=== PATIENT | female | born 1970 | race Caucasian/White ===

== ENCOUNTER → 2017-12-09 | Outpatient (CLI) | payer MEDICARE, MEDICAID ==
[~2017-12-09] MED LIST: CLEOCIN150 MG PO; DEPAKOTE125 MG PO; ECONOPRED PLUS10 M1 OD; HYDROCODONE BIT1 T11 PO; IBUPROFEN600 MG PO; KROGER NIC21 MG/24 H T; METHOTREXATE S2.5 M1 PO; MOTRIN800 MG PO; NEURONTIN800 MG PO; NORCO 325 MG-51 TAB PO; OXYCODONE HCL5 MG PO; VICODIN 500 MG-1 TAB PO; ZOFRAN ODT4 MG SL
[2017-12-09 12:19] LABS: HEMATOCRIT 46.6 % (37.0-47.0); HEMOGLOBIN 15.5 g/dl (12.0-16.0); MEAN CELL VOLUME 94.5 fl (81.0-99.0); MEAN CORPUSCULAR HGB 31.4 pg (27.0-31.0); MEAN CORPUSCULAR HGB CONC 33.3 g/dl (33.0-37.0); MEAN PLATELET VOLUME 10.1 fl (9.6-12.3); RED BLOOD COUNT 4.93 10*6/uL (4.10-5.10); RED CELL DISTRI WIDTH 16.3 % (0-14.5); WHITE BLOOD COUNT 9.6 10*3/uL (4.8-10.8)
[2017-12-09 12:51] LABS: ALBUMIN 3.7 gm/dl (3.1-4.5); BUN 15 mg/dl (7-24); CHLORIDE 106 mmol/L (98-107); CHOLESTEROL 207 mg/dL (<200); CREATININE 0.74 mg/dL (0.55-1.02); LIPASE 174 U/L (73-393); POTASSIUM 4.7 mmol/L (3.5-5.1); SGOT/AST 86 IU/L (3-35); SGPT/ALT 125 U/L (12-78); SODIUM 140 mmol/L (136-145); TOTAL PROTEIN 7.8 gm/dL (6.4-8.2); TRIGLYCERIDES 159 mg/dl (<150); VLDL CHOLESTEROL 32 mg/dL (6-40)
[2017-12-09 12:52] LABS: ALKALINE PHOSPHATASE 104 U/L (45-117); HDL CHOLESTEROL 56 mg/dl (40-60); LDL CHOLESTEROL 119 mg/dL (9-159)
== END ==
LOC: LAB 11:57
PROVIDERS: Family Medicine
DX: E78.00 Pure hypercholesterolemia, unspecified (principal); E74.9 Disorder of carbohydrate metabolism, unspecified; E55.9 Vitamin D deficiency, unspecified; Z79.899 Other long term (current) drug therapy

== ENCOUNTER → 2018-02-12 | Outpatient (CLI) | payer MEDICARE, MEDICAID ==
--- NOTE | ~2018-02-12 | EEG ---
[place], [place] ELECTROENCEPHALOGRAM REPORT NAME: BRITTNI JERNIGAN UNIT #: [id number] ROOM: DOCTOR: DAISHA SPICER MD, JR DOS: 02/12/18 This 47-year-old woman on Vimpat, Neurontin, prednisone and ibuprofen displayed the following underlying rhythms: Fairly well organized, synchronous, 12 Hz, 30 microvolt alpha rhythm in both posterior regions. 18 Hz, 20 microvolt beta rhythms were noted in both anterior and posterior regions. There was symmetrical attenuation of posterior alpha rhythms with eye opening. Five minutes hyperventilation produced no abnormalities. There was fair driving photic stimulation without abnormalities. The patient did not fall asleep during this tracing. Throughout this recording, there were no focal abnormalities or epileptiform activity. IMPRESSION: Normal awake EEG. Clinical correlation was highly advised. DAISHA SPICER MD CM:EEG:ELECTROENCEPHALOGRAM REPORT [id number] T: DAISHA SPICER MD, JR
== END | disposition home or self-care (01) ==
LOC: CP 11:57
DX: G25.3 Myoclonus (principal); K14.8 Other diseases of tongue

== ENCOUNTER → 2018-06-09 | Outpatient (CLI) | payer MEDICARE, MEDICAID ==
[2018-06-09 09:04] LABS: BASO % 0.4 % (0.0-1.0); EOS # 0.3 10*3/uL (0.0-0.4); EOS % 2.9 % (1.0-4.0); HEMATOCRIT 49.5 % (37.0-47.0); HEMOGLOBIN 16.1 g/dl (12.0-16.0); LYMPH # 2.6 10*3/uL (1.3-4.4); LYMPH % 24.1 % (27.0-41.0); MEAN CELL VOLUME 96.5 fl (81.0-99.0); MEAN CORPUSCULAR HGB 31.4 pg (27.0-31.0); MEAN CORPUSCULAR HGB CONC 32.5 g/dl (33.0-37.0); MONO # 0.8 10*3/uL (0.1-1.0); MONO % 7.3 % (3.0-9.0); NEUT # 6.9 10*3/uL (2.3-7.9); NEUT % 64.9 % (47.0-73.0); PLATELET COUNT AUTOMATED 300 10*3/uL (130-400); RED BLOOD COUNT 5.13 10*6/uL (4.10-5.10); RED CELL DISTRI WIDTH 16.2 % (0-14.5); WHITE BLOOD COUNT 10.6 10*3/uL (4.8-10.8)
[2018-06-09 09:23] LABS: ALBUMIN 3.7 gm/dl (3.1-4.5); BUN 15 mg/dl (7-24); CHLORIDE 106 mmol/L (98-107); CREATININE 0.85 mg/dL (0.55-1.02); POTASSIUM 4.4 mmol/L (3.5-5.1); SGOT/AST 12 IU/L (3-35); SGPT/ALT 23 U/L (12-78); SODIUM 139 mmol/L (136-145); TOTAL PROTEIN 7.8 gm/dL (6.4-8.2)
[2018-06-09 09:25] LABS: ALKALINE PHOSPHATASE 102 U/L (45-117)
== END | disposition home or self-care (01) ==
LOC: LAB 08:11
PROVIDERS: Nurse Practitioner Family
DX: H20.13 Chronic iridocyclitis, bilateral (principal); Z79.899 Other long term (current) drug therapy

== ENCOUNTER 2018-10-13 17:18 | Emergency (ER) | payer MEDICARE, MEDICAID ==
[~2018-10-13] VITALS: Ht 162.5 cm; Wt 111.6 kg
[2018-10-13 18:38] LABS: BASO # 0.1 10*3/uL (0.0-0.1); BASO % 0.3 % (0.0-1.0); EOS # 0.3 10*3/uL (0.0-0.4); HEMATOCRIT 45.6 % (37.0-47.0); HEMOGLOBIN 15.3 g/dl (12.0-16.0); LYMPH # 3.1 10*3/uL (1.3-4.4); LYMPH % 20.1 % (27.0-41.0); MEAN CELL VOLUME 94.4 fl (81.0-99.0); MEAN CORPUSCULAR HGB 31.7 pg (27.0-31.0); MEAN CORPUSCULAR HGB CONC 33.6 g/dl (33.0-37.0); MEAN PLATELET VOLUME 10.1 fl (9.6-12.3); MONO # 1.1 10*3/uL (0.1-1.0); NEUT # 10.7 10*3/uL (2.3-7.9); NEUT % 70.3 % (47.0-73.0); PLATELET COUNT AUTOMATED 333 10*3/uL (130-400); RED BLOOD COUNT 4.83 10*6/uL (4.10-5.10); RED CELL DISTRI WIDTH 15.5 % (0-14.5); WHITE BLOOD COUNT 15.3 10*3/uL (4.8-10.8)
[2018-10-13 18:57] LABS: ALBUMIN 3.6 gm/dl (3.1-4.5); ALKALINE PHOSPHATASE 105 U/L (45-117); BUN 15 mg/dl (7-24); CHLORIDE 110 mmol/L (98-107); CREATININE 0.71 mg/dL (0.55-1.02); POTASSIUM 4.2 mmol/L (3.5-5.1); SGOT/AST 16 IU/L (3-35); SGPT/ALT 21 U/L (12-78); SODIUM 139 mmol/L (136-145); TOTAL PROTEIN 7.7 gm/dL (6.4-8.2)
[2018-10-13] MEDS ORDERED: CEPACOL SORE T1 EACH MM (20:16)
[2018-10-13] MEDS ORDERED: LEVAQUIN500 M2 PO (20:16)
== END 2018-10-13 20:26 | disposition home or self-care (01) ==
LOC: ED 17:18
PROVIDERS: Emergency Medicine
DX: J03.90 Acute tonsillitis, unspecified (principal); E78.5 Hyperlipidemia, unspecified; E66.01 Morbid (severe) obesity due to excess calories; F17.200 Nicotine dependence, unspecified, uncomplicated; Z68.41 Body mass index [BMI] 40.0-44.9, adult; Z88.0 Allergy status to penicillin; Z88.6 Allergy status to analgesic agent; Z88.5 Allergy status to narcotic agent; Z79.899 Other long term (current) drug therapy; Z90.49 Acquired absence of other specified parts of digestive tract

== ENCOUNTER → 2018-11-01 | Outpatient (CLI) | payer MEDICARE, MEDICAID ==
[~2018-11-01] MED LIST changes: +ASPIRIN81 M1 PO; +CARVEDILOL3.125 MG PO; +CEPACOL SORE T1 EACH MM; +CLARITIN10 MG PO; +DELTASONE20 M1 PO; +IBU800 M1 PO; +LEVAQUIN500 M2 PO; +LIPITOR40 MG PO; +LOPRESSOR25 MG PO; +METHOTREXATE2.5 M1 PO; +NATURE'S BLEND F1 MG PO; +NORVASC10 MG PO; +VIMPAT100 MG PO; +VIMPAT50 MG PO; +ZITHROMAX250 MG PO
== END | disposition home or self-care (01) ==
LOC: RAD 16:34
DX: J84.9 Interstitial pulmonary disease, unspecified (principal)

== ENCOUNTER 2018-11-15 12:20 | Inpatient (IN) | payer MEDICARE, MEDICAID ==
[~2018-11-15] VITALS: Ht 162.5 cm; Wt 116.2 kg
--- NOTE | ~2018-11-15 | EKG ---
[place], [place] ELECTROCARDIOGRAM REPORT NAME: BRITTNI JERNIGAN UNIT #: [id number] ROOM: 504 DOCTOR: TONE DRAFT REPORT BIRTHDATE: [birth year] [facility] Test Date: 2018-11-16 Test Time: 16:03:53 Pat Name: BRITTNI JERNIGAN Department: Room: 504 2 Gender: F Software Engineering Project Manager: Radha Rincon : 1970 Requested By: WENDIE SCHAFER Order Number: [id number] Reading MD: Wendie Schafer MD Measurements Intervals [place] Rate: 66 P: 36 [place]: 160 QRS: 17 QRSD: 89 T: 83 QT: 412 QTc: 432 Interpretive Statements Sinus rhythm Compared to ECG 11/15/2018 18:29:07 No significant changes Electronically Signed On 11-17-2018 15:46:13 PST by Wendie Schafer MD CM:EKGRPT:ELECTROCARDIOGRAM REPORT [id number] WENDIE SCHAFER MD EPIPHANY DRAFT REPORT WENDIE SCHAFER MD
--- NOTE | ~2018-11-15 | PR ---
[place], [place] PROGRESS NOTE NAME: BRITTNI JERNIGAN UNIT #: [id number] ROOM: 504 DOCTOR: TANNER STEPHENS MD BIRTHDATE: [birth year] DOS: 11/16/2018 SUBJECTIVE: The patient is feeling better and underwent cardiac stress testing this morning, which was abnormal. PHYSICAL EXAMINATION: GENERAL APPEARANCE: The patient is alert and oriented x 3, in no visible distress. Morbid obesity. VITAL SIGNS: Blood pressure 142/88, heart rate of 63 beats per minute, breathing 20 times per minute, afebrile. HEENT AND NECK: Exam within normal limits. CARDIOVASCULAR SYSTEM: Heart rate is regular in rate and rhythm. S1 and S2 normally audible. LUNGS: Clear to auscultation. ABDOMEN: Soft, nontender. No obvious organomegaly. Bowel sounds are present. EXTREMITIES: Without significant cyanosis or edema. IMPRESSION: 1. Coronary artery disease and abnormal cardiac stress test showing moderate-sized reversible ischemic defect involving mid and distal anterior septum with 64% left ventricular ejection fraction. Dr. Benton consulted to take her for a heart catheterization for further evaluation. Cardiac enzymes were all negative. 2. Left-sided and precordial chest pains, resolved. 3. Benign essential hypertension, treated and controlled. 4. POLLEN ALLERGIES, being treated with loratadine and asymptomatic. 5. Nicotine smoke dependence. The patient has been encouraged to stop smoking cigarettes and started on nicotine patch. 6. Moderate protein calorie malnutrition. The patient working with dietary. 7. Morbid obesity with BMI of 44. The patient is working with dietary. TANNER STEPHENS MD CM:PNTRANS [id number] TANNER STEPHENS MD 11/17/18519 interface
--- NOTE | ~2018-11-15 | DS ---
[place], [place] DISCHARGE SUMMARY NAME: BRITTNI JERNIGAN UNIT #: [id number] ROOM: 504 DOCTOR: ANGELO MONSIVAISTANNER Prieto BIRTHDATE: [birth year] DOS: 11/17/2018 DISCHARGE DIAGNOSES: 1. Abnormal cardiac stress test. The patient was sent for heart catheterization with Dr. Benton. 2. Morbid obesity, BMI of 44. 3. Nicotine smoke dependence. 4. History of pancreatitis. 5. Generalized seizure disorder. 6. Mixed hyperlipidemia. 7. Vitamin D deficiency. 8. Moderate protein-calorie malnutrition. 9. POLLEN allergies. 10. Benign essential hypertension. The patient was admitted when she presented with left-sided and precordial chest pains and cardiac enzymes were negative. I took the patient for a cardiac stress test, which turned out to be abnormal. Moderate sized reversible ischemic defect involving the mid and distal anterior septum with 64% left ventricular ejection fraction. The patient was taken for heart catheterization by Dr. Benton to [facility] for further evaluation. The patient was kept on a cardiac rehabilitation program director and kept symptom-free at [facility]. 11. Benign essential hypertension. Blood pressures are monitored and treated. 12. POLLEN allergies treated and asymptomatic with loratadine. 13. Nicotine smoke dependence. The patient was encouraged to stop smoking cigarettes and kept on a nicotine patch. Bad effect of cigarette smoke on her health was explained to her. 14. Moderate protein-calorie malnutrition. The patient worked with Dietary. 15. Morbid obesity with a BMI of 44. The patient worked with Dietary. DISCHARGE MANAGEMENT: She was on methotrexate 15 mg every Thursday, Lipitor 40 mg a day, metoprolol 25 mg b.i.d., aspirin 81 mg a day, loratadine 10 mg a day, amlodipine 10 mg a day, lacosamide 100 mg b.i.d., prednisolone eyedrops, nicotine patch 21 mg a day, gabapentin 800 mg q.i.d., ibuprofen 800 mg b.i.d. p.r.n. for pain, metoprolol 12.5 mg b.i.d., Coreg 3.125 mg b.i.d. [place], [place] DISCHARGE SUMMARY NAME: BRITTNI JERNIGAN UNIT #: [id number] ROOM: 504 DOCTOR: TANNER STEPHENS MD BIRTHDATE: [birth year] TANNER STEPHENS MD CM:NICHOL [id number] TANNER STEPHENS MD 11/17/18 1207 interface
--- NOTE | ~2018-11-15 | ST ---
[place], [place] EXERCISE STRESS TEST REPORT NAME: BRITTNI JERNIGAN UNIT #: [id number] ROOM: 504 DOCTOR: TANNER STEPHENS MD BIRTHDATE: [birth year] DOS: 11/16/2018 LEXISCAN CARDIAC STRESS TEST The patient is a 48-year-old female with morbid obesity, precordial chest pains, history of smoking cigarettes, ruled out for acute [place], who is undergoing Lexiscan Cardiolite stress test. The patient's baseline EKG showed sinus bradycardia with a heart rate of 58 beats per minute, normal cardiac axis, no significant ST-T abnormality. During the Lexiscan infusion and recovery phase, the patient did not develop any significant EKG abnormality and no cardiac dysrhythmias were observed. The patient did not complain of any angina-like symptoms and tolerated the test very well. The patient's heart rate ranged between 58-80 beats per minute and blood pressure ranged between 124 systolic over 70 diastolic to 132 systolic over 78 diastolic. The patient was injected with Cardiolite 40 seconds after the Lexiscan infusion. Normal EKG part of the Lexiscan Cardiolite stress test. Cardiolite results to be reported by Cardiology later today. TANNER STEPHENS MD CM:STRESS:EXERCISE STRESS TEST REPORT [id number] TANNER STEPHENS MD
--- NOTE | ~2018-11-15 | WRIGHTHP ---
[place], [place] PATIENT HISTORY AND PHYSICAL EXAM NAME: BRITTNI JERNIGAN [facility] #: [id number] UNIT #: [id number] ROOM: 504 DOCTOR: TANNER STEPHENS MD BIRTHDATE: [birth year] DOS: 11/15/2018 HISTORY OF PRESENT ILLNESS: The patient is a 48-year-old female with a past medical history of: 1. Morbid obesity with a BMI of 44. 2. Nicotine smoke dependence. 3. History of pancreatitis. 4. Generalized seizure disorder. 5. Mixed hyperlipidemia. 6. Vitamin D deficiency. 7. Moderate protein-calorie malnutrition. The patient presented to the [facility] with precordial and left-sided chest pains going on since yesterday. The patient is a high risk for coronary artery disease and MD because of her obesity, smoking history, hypertension and was admitted for further evaluation. Cardiac enzymes are to be performed and the patient is scheduled for cardiac stress test in the morning. If normal, the patient can be discharged to home. The patient is chest pain free now. The patient had some dizziness and shortness of breath with chest pains. No other GI or urinary symptoms. REVIEW OF SYSTEMS: CARDIOVASCULAR SYSTEM: Chest pains. GASTROINTESTINAL: No nausea, vomiting, diarrhea or constipation. RESPIRATORY: No significant increase in shortness of breath or wheezing. FAMILY HISTORY: Noncontributory. HOME MEDICATIONS: Amlodipine, loratadine, Coreg, prednisolone eyedrops, gabapentin, methotrexate, ibuprofen, lacosamide, metoprolol. ALLERGIES: Known allergies to PENICILLIN, CODEINE and TYLENOL. PHYSICAL EXAMINATION: GENERAL: Alert, oriented, morbidly obese with a BMI of 44, otherwise some left chest wall tenderness. HEENT AND NECK: Extraocular movements are intact. Sclerae are anicteric. Oral mucosa is moist and clean. No obvious facial weakness. Neck is supple without any lymphadenopathy. No thyromegaly. No JVD. No carotid arterial bruits. LUNGS: Clear to auscultation. No wheezing. No rhonchi. CARDIOVASCULAR SYSTEM: Heart rate is regular in rate and rhythm. S1 and S2 normally audible. No significant murmur or any other abnormal cardiac sounds. ABDOMEN: Soft, nontender. No obvious organomegaly. Bowel sounds are present. No obvious herniation. EXTREMITIES: Without significant cyanosis or edema. Warm to touch. CENTRAL NERVOUS SYSTEM: Alert and oriented x 3. Cranial nerves II-XII are intact. Speech is normal. The patient is able to move all extremities. Normal muscle strength. Deep tendon reflexes are equal on both sides. Plantars were downgoing. [place], [place] PATIENT HISTORY AND PHYSICAL EXAM NAME: BRITTNI JERNIGAN UNIT #: [id number] ROOM: [facility] DOCTOR: TANNER STEPHENS MD BIRTHDATE: [birth year] IMPRESSION: 1. Left-sided and precordial chest pains with negative first set of cardiac enzymes. I will perform 2 more sets of cardiac enzymes and schedule her for a cardiac stress test in the morning to rule out coronary artery disease. The patient is a high risk for coronary artery disease because of morbid obesity, smoking cigarettes, hypertension. 2. Glaucoma, prednisolone eyedrops are being continued. 3. Benign essential hypertension. Blood pressure is being monitored and treated and followed. 4. POLLEN allergies, treated and controlled with loratadine. 5. Nicotine smoke dependence. The patient is encouraged to stop smoking cigarettes and I will start her on nicotine patch. 6. Moderate protein-calorie malnutrition history. The patient to work with Dietary and also for her morbid obesity with a BMI of 44. TANNER STEPHENS MD CM:HISPHYS:PATIENT HISTORY AND PHYSICAL EXAMINATION [phone] TANNER STEPHENS MD 11/15/18 184 interface
--- NOTE | ~2018-11-15 | EKG ---
[place], [place] ELECTROCARDIOGRAM REPORT NAME: BRITTNI JERNIGAN UNIT #: [id number] ROOM: 504 DOCTOR: TONE DRAFT REPORT BIRTHDATE: [birth year] [facility] Test Date: 2018-11-15 Test Time: 15:05:38 Pat Name: BRITTNI JERNIGAN Department: Room: [facility] Gender: F Food Sales Clerk: Viviana Harrell : 1970 Requested By: HERIBERTO GRAMAJO Order Number: [id number] Reading MD: Pepito Benton MD Measurements Intervals [place] Rate: 64 P: 28 CT: 157 QRS: 2 QRSD: 91 T: 85 QT: 410 QTc: 423 Interpretive Statements Sinus rhythm No change from earlier ECG this date Electronically Signed On 11-16-2018 4:08:48 PST by Pepito Benton MD CM:EKGRPT:ELECTROCARDIOGRAM REPORT [id number] HERIBERTO WAYNE DRAFT REPORT HERIBERTO GRAMAJO M.D.
--- NOTE | ~2018-11-15 | EKG ---
[place], [place] ELECTROCARDIOGRAM REPORT NAME: BRITTNI JERNIGAN UNIT #: [id number] ROOM: 504 DOCTOR: TONE DRAFT REPORT BIRTHDATE: [birth year] [facility] Test Date: 2018-11-16 Test Time: 19:25:48 Pat Name: BRITTNI JERNIGAN Department: Room: 504 2 Gender: F Rehab Manager: Radha Rincon : 1970 Requested By: WENDIE SCHAFER Order Number: [id number] Reading MD: Wendie Schafer MD Measurements Intervals [place] Rate: 72 P: 30 [place]: 160 QRS: 14 QRSD: 87 T: 84 QT: 397 QTc: 435 Interpretive Statements Sinus rhythm Compared to ECG 11/15/2018 18:29:07 No significant changes Electronically Signed On 11-17-2018 16:45:43 PST by Wendie Schafer MD CM:EKGRPT:ELECTROCARDIOGRAM REPORT [id number] WENDIE SCHAFER MD EPIPHANY DRAFT REPORT WENDIE SCHAFER MD
--- NOTE | ~2018-11-15 | EKG ---
[place], [place] ELECTROCARDIOGRAM REPORT NAME: BRITTNI JERNIGAN UNIT #: [id number] ROOM: 504 DOCTOR: TONE DRAFT REPORT BIRTHDATE: [birth year] [facility] Test Date: 2018-11-15 Test Time: 18:29:07 Pat Name: BRITTNI JERNIGAN Department: Room: [facility] Gender: F Awake Overnight Monitor: : 1970 Requested By: HERIBERTO GRAMAJO Order Number: [id number] Reading MD: Pepito Benton MD Measurements Intervals [place] Rate: 71 P: 31 [place]: 163 QRS: 16 QRSD: 86 T: 115 QT: 407 QTc: 443 Interpretive Statements Sinus rhythm Probable left atrial enlargement Borderline repolarization abnormality Compared to ECG 11/15/2018 12:24:27 No significant changes Electronically Signed On 11-16-2018 4:10:50 PST by Pepito Benton MD CM:EKGRPT:ELECTROCARDIOGRAM REPORT [id number] HERIBERTO WAYNE DRAFT REPORT HERIBERTO GRAMAJO M.D.
--- NOTE | ~2018-11-15 | EKG ---
[place], [place] ELECTROCARDIOGRAM REPORT NAME: BRITTNI JERNIGAN UNIT #: [id number] ROOM: 504 DOCTOR: TONE DRAFT REPORT BIRTHDATE: [birth year] [facility] Test Date: 2018-11-15 Test Time: 12:24:27 Pat Name: BRITTNI JERNIGAN Department: Room: [facility] Gender: F Planning Technician: : 1970 Requested By: HERIBERTO GRAMAJO Order Number: [id number] Reading MD: Pepito Benton MD Measurements Intervals [place] Rate: 70 P: 37 [place]: 154 QRS: 12 QRSD: 88 T: 89 QT: 384 QTc: 415 Interpretive Statements Sinus rhythm Probable left atrial enlargement Electronically Signed On 11-15-2018 13:34:27 PST by Pepito Benton MD CM:EKGRPT:ELECTROCARDIOGRAM REPORT [id number] HERIBERTO WAYNE DRAFT REPORT HERIBERTO GRAMAJO M.D.
[~2018-11-15 12:20] MED LIST changes: -ASPIRIN81 M1 PO; -CARVEDILOL3.125 MG PO; -CLARITIN10 MG PO; -DELTASONE20 M1 PO; -IBU800 M1 PO; -LIPITOR40 MG PO; -LOPRESSOR25 MG PO; -METHOTREXATE2.5 M1 PO; -NATURE'S BLEND F1 MG PO; -NORVASC10 MG PO; -VIMPAT100 MG PO; -VIMPAT50 MG PO; -ZITHROMAX250 MG PO
[2018-11-15 12:22] VITALS: BP 174/95
[2018-11-15] MEDS ORDERED: VIMPAT50 MG PO (12:34)
[2018-11-15 12:37] LABS: BASO % 0.4 % (0.0-1.0); EOS # 0.3 10*3/uL (0.0-0.4); EOS % 2.3 % (1.0-4.0); HEMOGLOBIN 15.3 g/dl (12.0-16.0); LYMPH # 3.8 10*3/uL (1.3-4.4); LYMPH % 33.4 % (27.0-41.0); MEAN CELL VOLUME 94.3 fl (81.0-99.0); MEAN CORPUSCULAR HGB 31.4 pg (27.0-31.0); MEAN CORPUSCULAR HGB CONC 33.3 g/dl (33.0-37.0); MEAN PLATELET VOLUME 10.3 fl (9.6-12.3); MONO # 0.9 10*3/uL (0.1-1.0); NEUT # 6.3 10*3/uL (2.3-7.9); NEUT % 55.5 % (47.0-73.0); PLATELET COUNT AUTOMATED 286 10*3/uL (130-400); RED BLOOD COUNT 4.88 10*6/uL (4.10-5.10); RED CELL DISTRI WIDTH 15.5 % (0-14.5); WHITE BLOOD COUNT 11.3 10*3/uL (4.8-10.8)
[2018-11-15 12:54] LABS: ALBUMIN 3.6 gm/dl (3.1-4.5); ALKALINE PHOSPHATASE 109 U/L (45-117); BUN 16 mg/dl (7-24); CHLORIDE 108 mmol/L (98-107); CREATININE 0.78 mg/dL (0.55-1.02); POTASSIUM 3.9 mmol/L (3.5-5.1); SGOT/AST 17 IU/L (3-35); SGPT/ALT 25 U/L (12-78); SODIUM 141 mmol/L (136-145); TOTAL PROTEIN 7.6 gm/dL (6.4-8.2)
[2018-11-15 12:55] LABS: TROPONIN I < 0.015 ng/ml (<0.045)
[2018-11-15 12:58] LABS: ACT PARTIAL THROMBO TIME 26.5 SECONDS (20.8-31.5); INTERNATIONAL NORM RATIO 0.9 (2.0-3.5)
[2018-11-15 14:20] VITALS: BP 158/82
--- NOTE | 2018-11-15 14:20 | NUR ---
A 48, admitted to , under the services of Dr. ANGELO MONSIVAIS,TANNER Prieto with a diagnosis of CHEST PAIN. Chief complaint is CHEST PAIN. Patient arrived via stretcher from ER. Monitor applied. Initial assessment completed. Vital signs taken and recorded. DR. ANGELO MONSIVAIS,TANNER Prieto notified of admission to the unit. Orders received. See assessment for past medical history, medications and allergies. Patient and/or family oriented to unit. [facility] visitation policy reviewed. Clothing/patient valuable form completed. PAWEL FERRER
[2018-11-15] MEDS ORDERED: IBU800 M1 PO (14:50)
[2018-11-15] MEDS ORDERED: METHOTREXATE2.5 M1 PO (14:51)
[2018-11-15] MEDS ORDERED: VIMPAT100 MG PO (14:52)
[2018-11-15] MEDS ORDERED: CLARITIN10 MG PO (14:52)
[2018-11-15] MEDS ORDERED: NATURE'S BLEND F1 MG PO (14:54)
[2018-11-15] MEDS ORDERED: NORVASC10 MG PO (14:56)
[2018-11-15] MEDS ORDERED: CARVEDILOL3.125 MG PO (14:56)
--- NOTE | 2018-11-15 14:57 | NUR ---
HOME MEDICATIONS VERIFIED BY [facility].
--- NOTE | 2018-11-15 15:00 | NUR ---
DR STEPHENS CALLED FOR NEW ADMISSION ORDERS. WILL BE IN TO EVALUATE PATIENT AND DO ORDERS AT THAT TIME. NEW ORDER RECEIVED FOR REGULAR DIET AT THIS TIME.
[2018-11-15 16:00] VITALS: BP 149/87
--- NOTE | 2018-11-15 16:35 | NUR ---
PATIENT C/O HEADACHE AT THIS TIME. STATES THAT CHEST PAIN IS GONE AT THIS TIME. WAS GOING TO REMOVE NITRO BECAUSE OF HEADACHE BUT PATIENT REFUSES TO REMOVE IT, STATES "IT IS FINALLY WORKING." NO MEDICATION ORDER AT THIS TIME. DR STEPHENS AWARE OF HEADACHE. WAITING FOR ORDERS.
--- NOTE | 2018-11-15 18:02 | NUR ---
PATIENT MEDICATED WITH IBUPROFEN FOR C/O HEADACHE. WILL MONITOR FOR EFFECTIVENESS. PATIENT DENIES CHEST PAIN AT THIS TIME.
[2018-11-15 20:00] VITALS: BP 145/74
--- NOTE | 2018-11-15 20:00 | NUR ---
RESTING IN BED. SKIN WARM & DRY. HEP LOCK INTACT TO RIGHT ANTECUBITAL; SITE ASYMPTOMATIC. LUNGS DIMINISHED BILATERALLY WITH NO COUGH NOTED. ABDOMEN OBESE WITH NORMOACTIVE BOWEL SOUNDS. +1 EDEMA NOTED TO BILATERAL LOWER EXTREMITIES. CALL LIGHT WITHIN REACH. DENIES PAIN AT THIS TIME.
--- NOTE | 2018-11-15 21:58 | NUR ---
CALLED DR. STEPHENS DUE TO PATIENT C/O HEADACHE; ALREADY GIVEN MOTRIN. NEW ORDER RECEIVED.
--- NOTE | 2018-11-15 22:41 | NUR ---
MEDICATED WITH TORADOL FOR C/O HEADACHE & PER M.D. ORDERS.
[2018-11-16] VITALS: BP 154/89
--- NOTE | 2018-11-16 | NUR ---
NPO STATUS BEING MAINTAINED.
--- NOTE | 2018-11-16 02:00 | NUR ---
RESTING IN BED WITH EYES CLOSED. TORADOL GIVEN EARLIER APPARENTLY EFFECTIVE. CALL LIGHT REMAINS WITHIN REACH.
--- NOTE | 2018-11-16 05:30 | NUR ---
UP FOR BATH WITH ASSISTANCE OF PA.
--- NOTE | 2018-11-16 07:26 | NUR ---
PT LEFT FLOOR FOR STRESS TEST
[2018-11-16 08:00] VITALS: BP 168/82
--- NOTE | 2018-11-16 08:40 | NUR ---
INFORMED SIGNED CONSENT OBTAINED FOR LEXISCAN STRESS TEST WITH DR GARCES. RESTING EKG SINUS BRADYCARDIA HR 58 BP 132/78. PULSE OX 97% LUNGS CLEAR. PT COMPLETED ONE MINUTE OF A LEXISCAN PROTOCOL WITH PT RECEIVING LEXISCAN 0.4MG IV OVER 10 SECONDS. NO ARRHYTHMIAS OR ST CHANGES NOTED. PT C/O SOB WITH INJECTION. LAST RECOVERY HR OF 75 BP 132/78. PT IN STABLE CONDITION, AWAITING NUCLEAR IMAGES.
--- NOTE | 2018-11-16 09:00 | NUR ---
Reinsurance Accountant in to talk to patient. Patient states lives at home with her . There are "lots" steps in the home. Physician: Dr. Jose Enrique Najera Pharmacy: [facility] Home health services: none Patient's level of ADLs: INDEPENDENT Patient has working utilities: yes DME: none Follow-up physician's appointment after d/c: she prefers to make her own follow up appt after discharge Does patient want to access PORTAL?: no Discharge plan discussed with patient. She lives at home with her . She is independent in her ADLs and ambulation. Discussed home health care services and she denies any home needs at this time. When medically stable she will be discharged to home. KATHRIN ARIAS
--- NOTE | 2018-11-16 11:26 | NUR ---
PT DENIES TAKING COREG AND ALSO REFUSED NORVASC EVEN WITH BP BEING ELEVATED. I DID EDUCATE THE PT REGARDING RISKS OF HIGH BP. WILL NOTIFY
[2018-11-16 12:00] VITALS: BP 142/88
--- NOTE | 2018-11-16 12:48 | NUR ---
OFFICE STAFF WAS NOTIFIED OF DR. SCHAFER CONSULT. RESPONSE OF NOTIFICATION WAS OK. TRINI PETIT
--- NOTE | 2018-11-16 12:54 | NUR ---
Discussed with patient her CT for tomorrow. She would like to know if she could have it done today while she is here at the hospital. Informed insurance will not pay for an outpatient procedure on the same day as discharge. She verbalized an understanding. Due to the impending snow instructed patient to call ro reschedule if she is unable to make it and she verbalized an understanding.
--- NOTE | 2018-11-16 15:52 | NUR ---
LILI CALLED AND STATED PT WANTS CARDIAC CATH. WHILE SPEAKING WITH HER PA TOLD THIS NURSE THAT PT WAS C/O CHEST PAIN. PT UPSET AND CRYING BECAUSE SHE IS WORRIED ABOUT HAVING THE STRESS TEST. I CALLED DR SCHAFER HE STATED TO GIVE ORDERED LIPITOR, ASA AND COREG LOPRESSOR NOW AND GET A STAT EKG. MESSAGE RELAYED TO DR SCHAFER THAT PT WAS OK WITH CARDIAC CATH. HE STATED HE WILL SET IT UP AND BE UP TO SEE HER AFTER OFFICE HOURS.
[2018-11-16 16:00] VITALS: BP 158/92
--- NOTE | 2018-11-16 19:25 | NUR ---
REPORT OBTAINED FROM DAY SHIFT RN. PT IS CURRENTLY RESTING IN BED WITH HER GRANDSON AT THE BEDSIDE. SHE VOICES NO OTHER CONCERNS OTHER THAN COMPLAINTS OF A HEADACHE, SHE REQUESTS MOTRIN. SHE IS NSR ON THE MONITOR WITH A HEART RATE IN THE 60'S. RESPIRATIONS ARE EASY AND NONLABORED ON ROOM AIR. BED IS LOCKED AND IN THE LOWEST POSITION. PT IS AWARE SHE IS TO BE NPO AT MIDNIGHT FOR HEART CATH TOMORROW. CALL LIGHT IS WITHIN REACH. WILL CONTINUE TO MONITOR PT.
--- NOTE | 2018-11-16 19:36 | NUR ---
CRM CAMPAIGN MANAGER CALLED AND SAID PT HAD RUN OF V-TACH. UPON FURTHER QUESTONING AND EVALUATION THE PATIENT STATED SHE HAD HER HAND TO HER CHEST AND WAS MOVING HER BREAST UP AND DOWN WHICH COULD HAVE CAUSED THE ARTIFACT THAT WAS NOTED ON THE MONITOR STRIP. V-TACH WAS NOT FOUND IN ALL LEADS.STAT EKG OBTAINED A NURSING MEASURE TO DOUBLE CHECK. WILL CONT TO MONITOR
--- NOTE | 2018-11-16 19:37 | NUR ---
PT REQUESTED AND RECIEVED PRN ORDER FOR MOTRIN FOR C/O HEADACHE. WILL MONITOR FOR EFFECTIVENESS OF MEDICATION
[2018-11-16 20:00] VITALS: BP 150/90
--- NOTE | 2018-11-16 20:40 | NUR ---
PRN ORDER FOR MOTRIN EFFECTIVE PER ASSESSMENT. PT IS ASLEEP IN BED AT THIS TIME WITH NO S/S OF PAIN OR DISTRESS. WILL CONTINUE TO MONITOR.
[2018-11-17] VITALS: BP 154/78
--- NOTE | 2018-11-17 04:00 | NUR ---
PT IS ASLEEP IN BED AT THIS TIME WITH NO S/S OF PAIN OR DISCOMFORT. RESPIRATIONS ARE EASY AND NONLABORED ON ROOM AIR. SHE IS NSR ON THE MONITOR WITH A HEART RATE IN THE 60'S. GRANDSON IS AT THE BEDSIDE. BED IS LOCKED AND IN THE LOWEST POSITION, CALL LIGHT IS WITHIN REACH. WILL CONTINUE TO MONITOR PT.
[2018-11-17 08:00] VITALS: BP 140/76; BP 150/82
--- NOTE | 2018-11-17 08:00 | NUR ---
REPORT CALLED TO CASIMIRO AT [facility] PART TIME.
[2018-11-17] MEDS ORDERED: ASPIRIN81 M1 PO (08:49)
[2018-11-17] MEDS ORDERED: LIPITOR40 MG PO (08:49)
[2018-11-17] MEDS ORDERED: LOPRESSOR25 MG PO (08:49)
--- NOTE | 2018-11-17 09:40 | NUR ---
PT TAKEN TO [facility]' LEASE OPERATOR AT THIS TIME [facility]IA [facility]. HEART MONITOR RETURNED TO FLOOR.
== END 2018-11-17 09:40 | disposition other institution (70) | DRG 303 ==
LOC: ED 12:20 → 5E 13:35 → EDHOLD 13:35 → 5E 14:06
PROVIDERS: Emergency Medicine; ADMIT Internal Medicine
PROC: 4A02XM4 Measurement of Cardiac Total Activity, External Approach (ICD-10-PCS; principal; 2018-11-16)
PROC: 3E073KZ Introduction of Other Diagnostic Substance into Coronary Artery, Percutaneous Approach (ICD-10-PCS; principal; 2018-11-16)
DX: I25.10 Atherosclerotic heart disease of native coronary artery without angina pectoris (principal); E44.0 Moderate protein-calorie malnutrition; Z68.41 Body mass index [BMI] 40.0-44.9, adult; H20.9 Unspecified iridocyclitis; R94.39 Abnormal result of other cardiovascular function study; H40.9 Unspecified glaucoma; E66.01 Morbid (severe) obesity due to excess calories; F17.210 Nicotine dependence, cigarettes, uncomplicated; G40.409 Other generalized epilepsy and epileptic syndromes, not intractable, without status epilepticus; E78.2 Mixed hyperlipidemia; E55.9 Vitamin D deficiency, unspecified; I10 Essential (primary) hypertension; Z88.0 Allergy status to penicillin; Z88.6 Allergy status to analgesic agent; Z90.49 Acquired absence of other specified parts of digestive tract; Z98.51 Tubal ligation status; Z82.61 Family history of arthritis; Z79.899 Other long term (current) drug therapy; Z71.6 Tobacco abuse counseling

== ENCOUNTER 2019-01-13 10:02 | Emergency (ER) | payer MEDICARE, MEDICAID ==
[~2019-01-13] VITALS: Ht 162.5 cm; Wt 107.0 kg
--- NOTE | ~2019-01-13 | EKG ---
[place], [place] ELECTROCARDIOGRAM REPORT NAME: BRITTNI JERNIGAN UNIT #: [id number] ROOM: DOCTOR: EPIPHANY DRAFT REPORT BIRTHDATE: [birth year] [facility] Test Date: 2019-01-13 Test Time: 10:22:31 Pat Name: BRITTNI JERNIGAN Department: Room: Gender: F Rural Sociologist: : 1970 Requested By: PAWEL DIXON PA-C Order Number: [id number] Reading MD: Jesus Tellez Measurements Intervals [place] Rate: 65 P: 23 [place]: 156 QRS: -3 QRSD: 87 T: 86 QT: 396 QTc: 412 Interpretive Statements Sinus rhythm Compared to ECG 11/16/2018 19:25:48 No significant changes Electronically Signed On 01-16-2019 8:56:26 PDT by Jesus Tellez CM:EKGRPT:ELECTROCARDIOGRAM REPORT [id number] PAWEL DIXON PA-C EPIPHANY DRAFT REPORT PAWEL DIXON PA-C
[~2019-01-13 10:02] MED LIST changes: +ASPIRIN81 M1 PO; +CARVEDILOL3.125 MG PO; +CLARITIN10 MG PO; +IBU800 M1 PO; +LIPITOR40 MG PO; +LOPRESSOR25 MG PO; +METHOTREXATE2.5 M1 PO; +NATURE'S BLEND F1 MG PO; +NORVASC10 MG PO; +VIMPAT100 MG PO; +VIMPAT50 MG PO
[2019-01-13 10:42] LABS: BILIRUBIN NEGATIVE (NEGATIVE); BLOOD NEGATIVE (NEGATIVE); CLARITY SL CLOUDY (CLEAR); COLOR YELLOW (YELLOW); GLUCOSE NEGATIVE (NEGATIVE); KETONE NEGATIVE (NEGATIVE); LEUKO ESTERASE NEGATIVE (NEGATIVE); NITRITE NEGATIVE (NEGATIVE); UROBILINOGEN 0.2 E.U./dl (0.2-1.0)
[2019-01-13 10:56] LABS: BACTERIA 3+; EPITHELIAL CELLS 15-20
[2019-01-13 11:01] LABS: BASO % 0.2 % (0.0-1.0); EOS # 0.3 10*3/uL (0.0-0.4); EOS % 2.8 % (1.0-4.0); HEMOGLOBIN 15.6 g/dl (12.0-16.0); LYMPH # 2.6 10*3/uL (1.3-4.4); LYMPH % 26.7 % (27.0-41.0); MEAN CELL VOLUME 94.7 fl (81.0-99.0); MEAN CORPUSCULAR HGB 30.8 pg (27.0-31.0); MEAN CORPUSCULAR HGB CONC 32.5 g/dl (33.0-37.0); MEAN PLATELET VOLUME 10.1 fl (9.6-12.3); MONO # 0.8 10*3/uL (0.1-1.0); MONO % 7.6 % (3.0-9.0); NEUT # 6.2 10*3/uL (2.3-7.9); NEUT % 62.4 % (47.0-73.0); PLATELET COUNT AUTOMATED 284 10*3/uL (130-400); RED BLOOD COUNT 5.07 10*6/uL (4.10-5.10); RED CELL DISTRI WIDTH 15.6 % (0-14.5); WHITE BLOOD COUNT 9.9 10*3/uL (4.8-10.8)
[2019-01-13 11:21] LABS: ALBUMIN 3.4 gm/dl (3.1-4.5); ALKALINE PHOSPHATASE 111 U/L (45-117); BUN 19 mg/dl (7-24); CHLORIDE 107 mmol/L (98-107); CREATININE 0.87 mg/dL (0.55-1.02); LIPASE 92 U/L (73-393); POTASSIUM 4.5 mmol/L (3.5-5.1); SGOT/AST 16 IU/L (3-35); SGPT/ALT 23 U/L (12-78); SODIUM 141 mmol/L (136-145); TOTAL PROTEIN 7.8 gm/dL (6.4-8.2)
[2019-01-13 11:22] LABS: TROPONIN I < 0.015 ng/ml (<0.045)
[2019-01-13] MEDS ORDERED: DELTASONE20 M1 PO (13:24)
[2019-01-13] MEDS ORDERED: ZITHROMAX250 MG PO (13:24)
== END 2019-01-13 13:30 | disposition home or self-care (01) ==
LOC: ED 10:02
PROVIDERS: Physician Assistant
DX: R07.81 Pleurodynia (principal); F17.200 Nicotine dependence, unspecified, uncomplicated; Z98.890 Other specified postprocedural states; Z90.49 Acquired absence of other specified parts of digestive tract; Z98.51 Tubal ligation status; Z79.82 Long term (current) use of aspirin; Z79.899 Other long term (current) drug therapy; Z88.0 Allergy status to penicillin; Z88.6 Allergy status to analgesic agent; Z88.5 Allergy status to narcotic agent

== ENCOUNTER → 2019-10-06 | Outpatient (CLI) | payer MEDICARE, MEDICAID ==
[~2019-10-06] MED LIST changes: +DELTASONE20 M1 PO; +ZITHROMAX250 MG PO
== END | disposition home or self-care (01) ==
LOC: RAD 09:54
DX: R05 Cough (principal)

== ENCOUNTER → 2022-11-25 | Outpatient (CLI) | payer MEDICARE, OTHER ==
[2022-11-25 15:34] LABS: BUN 10 mg/dl (9-23)
== END | disposition home or self-care (01) ==
LOC: LAB 14:33 → CT 17:00
PROVIDERS: ATTEND Physician Assistant Medical
DX: Z51.81 Encounter for therapeutic drug level monitoring (principal); R51.9 Headache, unspecified

== ENCOUNTER → 2024-08-29 | Outpatient (CLI) | payer MEDICARE, OTHER | END | disposition home or self-care (01) | LOC: CT 08:00 | PROVIDERS: ATTEND Internal Medicine | DX: R51.9 Headache, unspecified (principal) ==